=== PATIENT | male | born 1995 | race African-American/Black ===

== ENCOUNTER 2019-06-22 01:01 | Emergency (ER) | payer OTHER ==
[2019-06-22] MEDS ORDERED: ONDANSETRON 4 MG TAB.RAPDIS PO ONE (02:39)
[2019-06-22] MEDS ORDERED: OXYCODONE-ACETAMINOPHEN 5-325 MG TABLET PO ONE (02:39)
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
[2019-06-22] MEDS ORDERED: CEPHALEXIN 500 MG CAPSULE PO ONE (04:38)
[2019-06-22 04:53] VITALS: BP 124/70
== END 2019-06-22 04:56 | disposition home or self-care (01) ==
LOC: ER 01:01
DX: S61.412A Laceration without foreign body of left hand, initial encounter (principal); M25.512 Pain in left shoulder; M79.602 Pain in left arm; M79.642 Pain in left hand; M54.2 Cervicalgia; M79.10 Myalgia, unspecified site; R51 Headache; V87.7XXA Person injured in collision between other specified motor vehicles (traffic), initial encounter; W26.0XXA Contact with knife, initial encounter
CPT/HCPCS: 99283; 73130; 73060; 73030; S0119